=== PATIENT | male | born 1970 | race Hispanic/Latino ===

== ENCOUNTER 2020-10-22 04:29 | Emergency (ER) | payer SELFPAY ==
[~2020-10-22] VITALS: Ht 162.6 cm; Wt 97.1 kg
[2020-10-22 04:56] VITALS: BP 155/95
[2020-10-22] MEDS ORDERED: KETOROLAC 15MG/ML VIAL (15MG/ML) IV ONE (05:00)
[2020-10-22] MEDS ORDERED: SOLU-MEDROL 125MG VIAL IVP ONE (05:00)
[2020-10-22] MEDS ORDERED: PROCHLORPERAZINE EDISYLATE 5 MG/ML 2 ML VIAL IVP ONE (05:30)
[2020-10-22] MEDS ORDERED: ONDANSETRON 4MG INJ IVP ONE (05:30)
[2020-10-22] MEDS ORDERED: PROCHLORPERAZINE 10MG/2ML INJ ONE (05:31)
[2020-10-22] MEDS ORDERED: METH4TAB3 PO (05:49)
[2020-10-22] MEDS ORDERED: DiphenhydrAMINE HCL 50 MG/ML VIAL ONE (05:54)
[2020-10-22] MEDS ORDERED: DiphenhydrAMINE HCL 50 MG/ML VIAL IV ONE (06:00)
== END 2020-10-22 06:09 | disposition home or self-care (01) ==
LOC: EDH 04:29
DX: S39.012A Strain of muscle, fascia and tendon of lower back, initial encounter (principal); M54.41 Lumbago with sciatica, right side; Z79.1 Long term (current) use of non-steroidal anti-inflammatories (NSAID); Z79.52 Long term (current) use of systemic steroids; Z79.899 Other long term (current) drug therapy; X58.XXXA Exposure to other specified factors, initial encounter; Y93.89 Activity, other specified; Y92.89 Other specified places as the place of occurrence of the external cause; Y99.8 Other external cause status
CPT/HCPCS: 82948; 96374; 96375; 99284; J0780; J1200; J1885; J2405; J2930